=== PATIENT | female | born 1965 | race Caucasian/White ===

== ENCOUNTER 2017-07-05 16:24 | Emergency (ER) | payer BC ==
[~2017-07-05] VITALS: Ht 157.5 cm; Wt 58.1 kg
[~2017-07-05 16:24] MED LIST: BUPROPION HCL100 M3 PO; FLOMAX 0.4MG C0.4 MG PO; FLOMAX0.4 MG PO; HYDROCODONE-APA1 TA1 PO; LO LOESTRIN FE1 TAB PO; PANTOPRAZOLE SO40 M1 PO; PERCOCET1 TAB PO; PYRIDIUM 200MG200 MG PO; ZOFRAN ODT4 MG PO
--- OUTSIDE RECORDS SUMMARY | 2017-07-05 16:35 | External Medical Summary Rpt ---
Author Author Crystal [facility] Organization [facility] Address Unknown Phone Unavailable Care Team Providers Care Rn Correctional Name Role Phone OLGA (REF) PCP [phone] Encounter WILIAM DAS [id number] Date(s): 09/01/16 - 11/03/16 [facility] [address] [place] [address]- [phone] Discharge Disposition: OP Self Care or Home Attending Physician: CARROL ESPINOZA (REF), MARK Admitting Physician: CARROL ESPINOZA (REF), MARK Referring Physician: CARROL ESPINOZA (REF), MARK Reason for Visit ENCNTR SCREEN MAMMOGRAM FOR MALIGNANT NEOPLASM OF BREAST Vital Signs No data available for this section Problem List No data available for this section Allergies, Adverse Reactions, Alerts No data available for this section Medications No data available for this section Results No data available for this section Immunizations No data available for this section Procedures No data available for this section Social History No data available for this section Assessment and Plan No data available for this section Hospital Discharge Instructions No data available for this section
--- OUTSIDE RECORDS SUMMARY | 2017-07-05 16:35 | External Medical Summary Rpt ---
Author Author Crystal [facility] Organization [facility] Address Unknown Phone Unavailable Care Team Providers Care Licensed Certified Orthotist Name Role Phone OLGA (REF) PCP [phone] Encounter WILIAM DAS [id number] Date(s): 09/01/16 - 11/03/16 [facility] [address] [place] [address]- Discharge Disposition: OP Self Care or Home [...]
--- OUTSIDE RECORDS SUMMARY | 2017-07-05 16:36 | External Medical Summary Rpt | CCD ---
Author Author , NINA WOOD Address Unknown Phone [email or web address] Immunization Name Date Rout CVX Reac Dose Comm Prov Is Faci e tion ent ider Refu lity Give sed n Tdap 05-0 115 999 Hist H149 No H149 , 6-20 oric Adso 13 al rbed Info rmat ion - Sour ce Unsp ecif ied Hep 05-1 43 999 Hist H149 No H149 B, 9-20 oric adul 08 al t Info rmat ion - Sour ce Unsp ecif ied Hep 11-1 43 999 Hist H149 No H149 B, 4-20 oric adul 07 al t Info rmat ion - Sour ce Unsp ecif ied Hep 10-0 43 999 Hist H149 No H149 B, 8-20 oric adul 07 al t Info rmat ion - Sour ce Unsp ecif ied Td 03-0 9 999 Hist H149 No H149 (flores 8-19 oric lt), 97 al Info adso rmat rbed ion - Sour ce Unsp ecif ied
--- OUTSIDE RECORDS SUMMARY | 2017-07-05 16:36 | External Medical Summary Rpt | CCD ---
Author Author [employer] Organization [employer] Address Unknown Phone Unavailable Purpose Continuity of Care Document - through 2016
--- OUTSIDE RECORDS SUMMARY | 2017-07-05 16:36 | External Medical Summary Rpt | CCD ---
Author Author , NINA WOOD Address Unknown Phone [email or web address] Immunization Name Date Rout CVX Reac Dose [...]
--- OUTSIDE RECORDS SUMMARY | 2017-07-05 16:36 | External Medical Summary Rpt | CCD ---
Author Author , NINA WOOD Address Unknown Phone [email or web address] Purpose Continuity of Care Document - through 2016 Problems Code Diagnosis DOS Provider Status N20.0 CALCULUS OF KIDNEY N20.1 CALCULUS OF URETER
--- OUTSIDE RECORDS SUMMARY | 2017-07-05 16:36 | External Medical Summary Rpt ---
Author Author NINA Fernando, NINA Fernando Organization [employer] Address Unknown Phone Unavailable
--- OUTSIDE RECORDS SUMMARY | 2017-07-05 16:36 | External Medical Summary Rpt | CCD ---
Author Author , NINA WOOD Address Unknown Phone [email or web address] Purpose Continuity of Care Document - through 2016 Problems Code Diagnosis DOS Provider Status N20.0 CALCULUS OF KIDNEY N20.1 CALCULUS OF URETER
[2017-07-05 16:57] LABS: HEMOGLOBIN 14.1 g/dL (12.2-16.2); LYMPH # 3.4 K/mm3 (0.7-4.5); LYMPH % 32.5 % (10-50.0)
[2017-07-05 17:07] LABS: URINE BILIRUBIN - DIPSTICK NEGATIVE (NEG); URINE BLOOD 2+ (NEG)
--- NOTE | 2017-07-05 17:29 | RADIOLOGY REPORT PS360 ---
CT ABD PELVIS W/O CONTRAST CLINICAL INDICATION: Diffuse abdominal pain, sharp abdominal pain ABDOMEN PAIN ORDERING PHYSICIAN: Srinivas Mackay MD PATIENT AGE: 51 years COMPARISON: 02/26/2016 TECHNIQUE: Axial images obtained with sagittal and coronal reformats. PROCEDURE: Oral Contrast: None IV Contrast: None . FINDINGS: Lung bases are clear. The liver, spleen, adrenal glands, gallbladder, and pancreas have an unremarkable unenhanced CT appearance. No renal calculi or hydronephrosis evident. There is once again noted a redundancy of the colon with the cecum lying within the left lateral abdominal region. There is thickening of the transverse colon which could be related to colitis or nondistention. There are few diverticula within the redundant sigmoid colon. No intestinal obstruction or free air. The appendix is not identified. There is no evidence of appendicitis. No acute bony anomalies. IMPRESSION: 1. Moderate redundancy of the colon with the cecum lying in the left mid abdominal region. There is thickening of redundant ascending and transverse colon which could be due to nondistention or colitis. 2. Otherwise negative CT abdomen pelvis
--- NOTE | 2017-07-05 17:42 | Emergency Room Report ---
History of Present Illness Time Seen by MD Quintero Presenting Problem in Triage Pt arrived:Walked Presenting Problem:PT C/O CONSTANT PAIN IN HER ABD AND WILL HAVE SHARP CRAMPS DENIES ANY N/V/D. DENIES ANY PAIN OR BURNING WITH URINATION Onset of symptoms date/time:/ or onset unknown for:MEDICAL HX UNKNOWN Treatment Prior to Arrival: [facility] Provided by: Sepsis Risk Assessment: Temp: 98.7 B/P: 149/99 MAP: 115 Pulse: 105 Resp: 16 Recent fever? N Clinical Suspician of Infection? N Mental Status: 1 - Regular (Normal Baseline) Sepsis Risk:Low Sepsis Risk Have you (or family members/close friends) recently traveled outside the [place]? N If Yes, where/when: Have you had exposure to infectious disease within the past month? N TB? Other? Specify: Patient complains of bilateral lower quadrant abdominal pain crampy in nature radiates through to her back came on at 11:30 AM so she would nausea no vomiting denies any diarrhea she denies any urinary symptoms or vaginal discharge ALLERGIES Coded Allergies: nitrofurantoin (From MACROBID) (Mild, 07/05/17) Home Medications Reported Medications BUPROPION HCL (Bupropion HCl) 100 MG PO DAILY #30 Pantoprazole Sodium 40 MG PO DAILY #30 NORETHINDRONE-E.ESTRADIOL-IRON (Lo Loestrin Fe 1-10 Tablet) 1 TAB PO DAILY #28 History Medical History General CAD? No Angina: No GA: No Hypertension? No Hyperlipidemia? No CHF? No DVT? No PE? No COPD? No Asthma? No Anemia? No GERD? No Gastric ulcers? No GI Bleed? No Hernia? No Thyroid Problems? No Hypothyroidism? No CVA? No Seizures? No Diabetes? No Insulin Dependent: No Insulin Pump: No Home FSBS? No Renal Insuffiency? No End Stage Renal Disease? No UTI? No Stones? No BPH? No GB Disease: No Nephritic Syndrome? No Asplenia? No Hepatitis? No Sickle Cell Disease? No Arthritis? No Migraines? No Cataracts? No Glaucoma? No MRSA? No HIV? No TB? No Anxiety? No Depression? Yes Cancer? No More? 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 Eyes: conjunctiva/corneas clear ENT: Mucous membranes moist. Neck: No jugular venous distention. Cardiac: regular rate and rhythm Lungs: Clear to auscultation bilaterally Abdomen: RLQ tenderness> Bilateral lower quadrant tenderness> bilateral upper quadrant tenderness, Nondistended, positive bowel sounds, no rebound : No CVA tenderness Extremities: no edema Musculoskeletal: No chest wall tenderness Skin: No rashes or lesions to exposed skin. Neurologic: Alert. No gross focal deficits Psychiatric: Normal affect (Thompson RIVERA, Srinivas) General Appearance mild distress Respiratory Status No: respiratory distress. Cardiovascular normal exam Neurologic alert Medical Decision Making LABS/Meds/Orders Pt receiving controlled substance in ED? Yes Comment IMPRESSION: 1. Moderate redundancy of the colon with the cecum lying in the left mid abdominal region. There is thickening of redundant ascending and transverse colon which could be due to nondistention or colitis. 2. Otherwise negative CT abdomen pelvis 606pm pt workup with possible colits. pt still complaining of pain, states now feels like pelvic cramps. will get pelvic exam. dw patient she states pain in in bilateral lower quadrants. 616pm RN is stating pt does not desire pelvic, will call Joaquim RIVERA. 620pm discussed with Dr. March the patient appears to be uncomfortable here but that the workup has come out largely unremarkable and read off the findings of the CT scan to him. He did not desire any antibiotics desired pain medicine nausea medicine and he will follow up in the morning for recheck. 623 RN now states pt states pain is epigastric. will add on ekg troponin Electrocardiogram read by myself shows a rate of 94, normal sinus rhythm, normal axis, no QT prolongation, nonspecific electrocardiogram requested Higinio per protocol is pending Results/Orders Laboratory Tests 07/05/17 1645: Urine Color YELLOW, Urine Appearance CLEAR, Urine pH 7.0, Ur Specific Bradley 1.010, Urine Protein NEGATIVE, Urine Ketones NEGATIVE, Urine Blood 2+ H, Urine Nitrate NEGATIVE, Urine Bilirubin NEGATIVE, Urine Urobilinogen 0.2, Ur Leukocyte Esterase NEGATIVE, Urine RBC 3-5, Urine WBC NONE, Ur Squamous Epith Cells 3-5, Urine Bacteria OCC, Urine Glucose NEGATIVE 07/05/17 1630: Troponin I Pending 07/05/17 1630: Sodium 137, Potassium 3.7, Chloride 102, Carbon Dioxide 28, BUN 13, Creatinine 0.9, Estimated Creat Clear 69, Estimated GFR (MDRD) 66, Glucose 89, Calcium 9.3, Total Bilirubin 0.4, AST 16, ALT 20, Alkaline Phosphatase 119 H, Total Protein 7.4, Albumin 3.9, Globulin 3.5 H, Albumin/Globulin Ratio 1.1, Amylase 75, Lipase 224, WBC 10.4, RBC 4.53, Hgb 14.1, Hct 42.9, MCV 94.7, RDW 13.4, Plt Count 322, MPV 7.6, Gran % 61.9, Gran # 6.4, Lymphocytes % 32.5, Monocytes % 4.4 , Eosinophils % 0.8, Basophils % 0.5, Lymphocytes # 3.4, Monocytes # 0.5, Eosinophils # 0.1, Basophils # 0.1, PUBS MCHC 32.9, MCH 31.2 Current Medication Orders Sig/Richard Start time Last Medication Dose Route Stop Time Status Admin Morphine Sulfate 4 MG ONCE ONE 07/05 1800 DC 07/05 IM 07/05 180 1759 Ondansetron HCl 4 MG ONCE ONE 07/05 1800 DC 07/05 IM 07/05 180 1758 Morphine Sulfate 4 MG ONCE ONE 07/05 1745 CAN IV 07/05 174 Ondansetron HCl 4 MG ONCE ONE 07/05 1745 CAN IV 07/05 1746 Ondansetron HCl 0 .STK-MED ONE 07/05 174 DC .ROUTE Morphine Sulfate 0 .STK-MED ONE 07/05 174 DC .ROUTE Sodium Chloride 10 ML PRN PRN 07/05 1645 DC IV 07/06 1636 Orders Procedure Date/time Status DIET-NOTHING BY MOUTH 07/05 D Active ELECTROCARDIOGRAM REQUEST 07/05 182 Active TROPONIN I 07/05 182 Active GEN NSG/PT REQ (NOT FOR MEDS!) 07/05 1805 Active WET PREP 07/05 1805 Active CHLAMYDIA/GC 07/05 1805 Active CHEST-PORTABLE 07/05 1744 Active SERUM , QUAL 07/[address] ABD/PELVIS REQ 07/05 1636 Complete IV SALINE LOCK 07/05 1636 Active URINALYSIS/COMPLETE 07/05 1636 Complete LIPASE 07/05 1636 Complete CBC WITH AUTO DIFF 07/05 1636 Complete CHEM 12 PROFILE 07/05 1636 Complete AMYLASE 07/05 1636 Complete Departure Departure Time of Disposition 1840 Disposition DC Home or Self Care(routine) Clinical Impression Primary Impression: Abdominal pain Qualifiers: Abdominal location: unspecified location Qualified Code: R10.9 - Unspecified abdominal pain Condition STABLE Referrals Shukri March MD (Family) Patient Instructions CONTROLLED SUBSTANCE-[facility], DI for Abdominal Pain-Adult Additional Instructions follow up with [facility]im [place] [place] for recheck return to ER if worse Discharge Counseling Counseled pt/family regarding diagnosis, test results, R/B of controlled subst., medications/RX, home care, follow up needs Prescriptions Current Visit Scripts Tramadol Hcl (Ultram 50MG) 50 MG PO Q6HP PRN BREAKTHROUGH MOD TO SEV PAIN #10 TAB Ondansetron (Zofran 4MG Odt) 4 MG PO Q6HP PRN NAUSEA AND VOMITING #10 ODT ED Critical Care Critical Care No
[2017-07-05] MEDS ORDERED: ZOFRAN ODT4 MG PO (18:39)
[2017-07-05] MEDS ORDERED: ULTRAM50 MG PO (18:39)
[2017-07-05 18:54] VITALS: BP 140/70
--- NOTE | 2017-07-06 06:07 | RADIOLOGY REPORT PS360 ---
CHEST-PORTABLE HISTORY: Pain ORDERING PHYSICIAN: Srinivas Mackay MD PATIENT AGE: 51 years COMPARISON: None available FINDINGS: The cardiomediastinal silhouette and pulmonary vascularity are within normal limits. The lungs are clear without infiltrates, suspicious nodules, or pleural effusions. No acute bony abnormalities. Calcified granuloma right midlung IMPRESSION: No acute finding
[2017-07-09 20:39] LABS: Neisseria gonorrhoeae, NAA Negative (Negative)
== END 2017-07-05 18:55 | disposition home or self-care (01) ==
LOC: ER 16:24
PROVIDERS: Emergency Medicine
DX: R10.9 Unspecified abdominal pain (principal); Q43.8 Other specified congenital malformations of intestine
CPT/HCPCS: J2405